=== PATIENT | female | born 1955 | race Caucasian/White ===

== ENCOUNTER 2016-08-14 11:36 | Emergency (ER) | payer BC ==
[~2016-08-14] VITALS: Ht 180.3 cm; Wt 94.5 kg
[2016-08-14 13:38] VITALS: BP 173/92
== END 2016-08-14 13:38 | disposition home or self-care (01) ==
LOC: ED 11:36
DX: S05.01XA Injury of conjunctiva and corneal abrasion without foreign body, right eye, initial encounter (principal); M06.9 Rheumatoid arthritis, unspecified; E03.9 Hypothyroidism, unspecified; Z88.2 Allergy status to sulfonamides; X58.XXXA Exposure to other specified factors, initial encounter; Y93.89 Activity, other specified; Y92.89 Other specified places as the place of occurrence of the external cause; Y99.8 Other external cause status